=== PATIENT | female | born 1985 | race Caucasian/White ===

== ENCOUNTER → 2019-05-31 | Outpatient (CLI) | payer OTHER | END | disposition home or self-care (01) | LOC: CVU 08:18 | PROVIDERS: ATTEND Surgery | DX: I77.0 Arteriovenous fistula, acquired (principal); N18.6 End stage renal disease | CPT/HCPCS: 93990 ==

== ENCOUNTER 2020-08-17 10:21 | Day surgery (SDC) | payer OTHER ==
[~2020-08-17] VITALS: Ht 167.6 cm; Wt 96.3 kg
[2020-08-17 10:56] VITALS: BP 163/77
[2020-08-17] MEDS ORDERED: LACTATED RINGERS 1,000 ML IV SCH (11:00)
[2020-08-17] MEDS ORDERED: TYLENOL PO (11:37)
[2020-08-17] MEDS ORDERED: GAS X PO (11:37)
[2020-08-17] MEDS ORDERED: AMIT10TA PO (11:37)
[2020-08-17] MEDS ORDERED: MEDR10TA PO (11:37)
[2020-08-17] MEDS ORDERED: LAMO150T4 PO (11:37)
[2020-08-17] MEDS ORDERED: PEPTO-BISMOL PO (11:37)
[2020-08-17] MEDS ORDERED: METO10TA82 PO (11:37)
[2020-08-17] MEDS ORDERED: AMLO-211 PO (11:37)
[2020-08-17] MEDS ORDERED: FURO80TA77 PO (11:37)
[2020-08-17] MEDS ORDERED: CARV6.252 PO (11:37)
[2020-08-17] MEDS ORDERED: PHENERGAN PO (11:37)
[2020-08-17] MEDS ORDERED: SERT100T PO (11:37)
[2020-08-17] MEDS ORDERED: LEVO75TA5 PO (11:37)
[2020-08-17] MEDS ORDERED: LEVE750T37 PO (11:37)
[2020-08-17] MEDS ORDERED: INSULIN ASPART (11:37)
[2020-08-17] MEDS ORDERED: DIPH25CA61 PO (11:37)
[2020-08-17] MEDS ORDERED: LISI40TA PO (11:37)
[2020-08-17] MEDS ORDERED: ATOR10TA9 PO (11:37)
[2020-08-17] MEDS ORDERED: ZOFRAN ODT PO (11:37)
[2020-08-17] MEDS ORDERED: LIDOCAINE 1%, 10ML ONE (12:05)
[2020-08-17 12:07] LABS: BASOPHILS % (AUTO) 1 % (0-1); EOSINOPHILS % (AUTO) 2 % (1-7); LYMPHOCYTES % (AUTO) 21 % (22-44); MEAN CORPUSCULAR HEMOGLOBIN 31.4 pg (27.0-34.8); MEAN CORPUSCULAR HGB CONC 34.4 g/dL (32.4-35.8); MONOCYTES % (AUTO) 11 % (2-9); NEUTROPHILS % (AUTO) 65 % (42-75); PLATELET COUNT 417 x10^3/uL (130-400); RED BLOOD COUNT 3.31 x10^6/uL (3.82-5.3); RED CELL DISTRIBUTION WIDTH 12.6 % (9.6-15.2)
[2020-08-17 12:08] LABS: MD NO
[2020-08-17 12:11] LABS: ALANINE AMINOTRANSFERASE 25 U/L (12-78); ALBUMIN 4.2 g/dL (3.4-5.0); ANION GAP 9 mmol/L (5-15); CALCIUM 9.2 mg/dL (8.5-10.1); CHLORIDE 95 mmol/L (98-107)
[2020-08-17 12:14] LABS: ALKALINE PHOSPHATASE 110 U/L (45-117); BILIRUBIN,TOTAL 0.3 mg/dL (0.2-1.0); CREATININE 6.56 mg/dL (0.55-1.02); TOTAL PROTEIN 8.6 g/dL (6.4-8.2)
[2020-08-17] MEDS ORDERED: MIDAZOLAM 1 MG/ML, 5ML ONE (12:58)
[2020-08-17] MEDS ORDERED: FENTANYL PF 100 MCG/2ML ONE (12:58)
[2020-08-17] MEDS ORDERED: NALOXONE 1 MG/ML, 2ML ONE (12:58)
[2020-08-17] MEDS ORDERED: HEPARIN 1,000 UNITS/ML, 10ML ONE (12:58)
[2020-08-17] MEDS ORDERED: FLUMAZENIL 0.1 MG/1 ML, 5ML ONE (12:58)
[2020-08-17] MEDS ORDERED: PROTAMINE SULFATE 10 MG/ML, 25ML ONE (12:58)
[2020-08-17] MEDS ORDERED: DIPHENHYDRAMINE 50 MG/ML, 1ML ONE (13:47)
[2020-08-17] MEDS ORDERED: HYDROmorphone 2 MG/ML, 1ML ONE (14:02)
[2020-08-17] MEDS ORDERED: LORazepam 2 MG/ML, 1ML ONE (14:22)
[2020-08-17] MEDS ORDERED: hydrOXYzine 50 MG/ML IM PRN (14:30)
[2020-08-17] MEDS ORDERED: morphine SULFATE 10 MG/ML, 1ML ONE (15:16)
[2020-08-17] MEDS ORDERED: MORPHINE SULFATE 4 MG/ML, 1ML IVPush ONE (15:30)
== END 2020-08-17 15:47 | disposition home or self-care (01) ==
LOC: OUT 10:21
PROVIDERS: ATTEND Surgery
DX: T82.898A Other specified complication of vascular prosthetic devices, implants and grafts, initial encounter (principal); N18.6 End stage renal disease; E10.21 Type 1 diabetes mellitus with diabetic nephropathy; G40.909 Epilepsy, unspecified, not intractable, without status epilepticus; E03.9 Hypothyroidism, unspecified; F51.01 Primary insomnia; I12.0 Hypertensive chronic kidney disease with stage 5 chronic kidney disease or end stage renal disease; E10.22 Type 1 diabetes mellitus with diabetic chronic kidney disease; F41.8 Other specified anxiety disorders; Z90.49 Acquired absence of other specified parts of digestive tract; Z79.899 Other long term (current) drug therapy; Z88.8 Allergy status to other drugs, medicaments and biological substances; Z20.828 Contact with and (suspected) exposure to other viral communicable diseases; Y83.8 Other surgical procedures as the cause of abnormal reaction of the patient, or of later complication, without mention of misadventure at the time of the procedure; Z99.2 Dependence on renal dialysis; Z20.822 Contact with and (suspected) exposure to COVID-19
CPT/HCPCS: 36415; 36902; 80053; 85025; 85730; 87635; 99156; 99157; C1725; C1769; C1894; J1200; J2060; J2250; J2270; J3010; J3410; J1644; J2720; J2310

== ENCOUNTER 2020-11-17 07:47 | Observation (INO) | payer OTHER ==
[~2020-11-17] VITALS: Ht 167.6 cm; Wt 92.7 kg
[~2020-11-17 07:47] MED LIST: AMIT10TA PO; AMLO-211 PO; ATOR10TA9 PO; CALC667C PO; CARV6.252 PO; DIPH25CA61 PO; FURO80TA77 PO; GAS X PO; HYDR-826 PO; INSULIN ASPART; LAMO150T4 PO; LEVE750T37 PO; LEVO75TA5 PO; LISI40TA9 PO; LORA-446 PO; MEDR10TA PO; METO10TA82 PO; PEPTO-BISMOL PO; PHENERGAN PO; SERT100T PO; TYLENOL PO; VITAMIN D3-50 PO; ZOFRAN ODT PO; [UNRECOGNIZED DRUG - OTHER]
[2020-11-17 08:25] VITALS: BP 112/75
[2020-11-17] MEDS ORDERED: LACTATED RINGERS 1,000 ML IV SCH (08:30)
[2020-11-17] MEDS ORDERED: CHLORHEXIDINE 15 ML UDC ONE (08:35)
[2020-11-17] MEDS ORDERED: CHLORHEXIDINE 15 ML UDC PO ONE (09:00)
[2020-11-17] MEDS ORDERED: OXYcodone 5 MG/5 ML ORAL.SOL UDC PO PRN (10:00)
[2020-11-17] MEDS ORDERED: ACETAMINOPHEN 325 MG TABLET PO PRN (10:00)
[2020-11-17] MEDS ORDERED: LABETALOL 5MG/ML, 20ML IV PRN (10:00)
[2020-11-17] MEDS ORDERED: MEPERIDINE/PF 25MG/0.5ML IVPush PRN (10:00)
[2020-11-17] MEDS ORDERED: hydrALAzine 20 MG/ML, 1ML IV PRN (10:00)
[2020-11-17] MEDS ORDERED: ALBUTEROL SULFATE 2.5 MG/3 ML NPPB PRN (10:00)
[2020-11-17] MEDS ORDERED: HYDROmorphone 1 MG/ML, 1ML INJ IVPush PRN (10:00)
[2020-11-17] MEDS ORDERED: LORazepam 2 MG/ML, 1ML IVPush PRN (10:00)
[2020-11-17] MEDS ORDERED: PROMETHAZINE 25 MG/ML, 1ML IVPush PRN (10:00)
[2020-11-17] MEDS ORDERED: LIDOCAINE-MPF 1%, 2ML ONE (10:09)
[2020-11-17 10:12] LABS: BASOPHILS % (AUTO) 1 % (0-1); EOSINOPHILS % (AUTO) 3 % (1-7); LYMPHOCYTES % (AUTO) 22 % (22-44); MEAN CORPUSCULAR HEMOGLOBIN 29.8 pg (27.0-34.8); MEAN CORPUSCULAR HGB CONC 33.5 g/dL (32.4-35.8); MONOCYTES % (AUTO) 7 % (2-9); NEUTROPHILS % (AUTO) 67 % (42-75); PLATELET COUNT 383 x10^3/uL (130-400); RED CELL DISTRIBUTION WIDTH 12.8 % (9.6-15.2)
[2020-11-17 10:15] LABS: MD NO
[2020-11-17] MEDS ORDERED: DIPHENHYDRAMINE 50 MG/ML, 1ML ONE (10:22)
[2020-11-17] MEDS ORDERED: SUCCINYLCHOLINE 20 MG/ML, 10ML ONE (10:22)
[2020-11-17] MEDS ORDERED: ROCURONIUM 10 MG/ML,10ML ONE (10:22)
[2020-11-17 10:24] LABS: ALANINE AMINOTRANSFERASE 23 U/L (12-78); ALBUMIN 4.1 g/dL (3.4-5.0); ANION GAP 8 mmol/L (5-15); CALCIUM 9.3 mg/dL (8.5-10.1); CHLORIDE 93 mmol/L (98-107); CREATININE 7.63 mg/dL (0.55-1.02)
[2020-11-17 10:28] LABS: ALKALINE PHOSPHATASE 105 U/L (45-117); BILIRUBIN,TOTAL 0.4 mg/dL (0.2-1.0); TOTAL PROTEIN 8.2 g/dL (6.4-8.2)
[2020-11-17] MEDS ORDERED: LIDOCAINE-MPF 1%, 2ML INFIL ONE (10:30)
[2020-11-17] MEDS ORDERED: MIDAZOLAM 1 MG/ML, 2ML ONE (10:49)
[2020-11-17] MEDS ORDERED: FENTANYL PF 100 MCG/2ML ONE ×2 (10:49→12:12)
[2020-11-17] MEDS ORDERED: DEXAMETHASONE 4 MG/ML, 5ML ONE (11:26)
[2020-11-17] MEDS ORDERED: ONDANSETRON 2MG/ML, 2ML ONE ×2 (11:26)
[2020-11-17] MEDS ORDERED: PROPOFOL 10 MG/ML, 20ML ONE (11:26)
[2020-11-17] MEDS ORDERED: LIDOCAINE-MPF 2% ,5ML ONE (11:27)
[2020-11-17] MEDS: FENTANYL PF 100 MCG/2ML IV PRN ×2 (12:14→12:38)
[2020-11-17] MEDS ORDERED: ACETAMINOPHEN 650 MG/20.3 ML UDC ONE (12:19)
[2020-11-17] MEDS ORDERED: OXYcodone 5 MG/5 ML ORAL.SOL UDC ONE (12:19)
[2020-11-17] MEDS ORDERED: SODIUM CHLORIDE FLUSH 10ML SYR IVF SCH (21:00)
== END 2020-11-17 13:52 | disposition home or self-care (01) ==
LOC: OUT 07:47 → ORIP 11:59
PROVIDERS: ADMIT Surgery; ATTEND Surgery
DX: T82.858A Stenosis of other vascular prosthetic devices, implants and grafts, initial encounter (principal); Z20.822 Contact with and (suspected) exposure to COVID-19; I12.0 Hypertensive chronic kidney disease with stage 5 chronic kidney disease or end stage renal disease; E10.22 Type 1 diabetes mellitus with diabetic chronic kidney disease; N18.6 End stage renal disease; G40.909 Epilepsy, unspecified, not intractable, without status epilepticus; E03.9 Hypothyroidism, unspecified; E10.40 Type 1 diabetes mellitus with diabetic neuropathy, unspecified; E10.21 Type 1 diabetes mellitus with diabetic nephropathy; I25.10 Atherosclerotic heart disease of native coronary artery without angina pectoris; K21.9 Gastro-esophageal reflux disease without esophagitis; F41.8 Other specified anxiety disorders; J45.909 Unspecified asthma, uncomplicated; E66.9 Obesity, unspecified; R79.1 Abnormal coagulation profile; Z87.891 Personal history of nicotine dependence; Z99.2 Dependence on renal dialysis; Z79.899 Other long term (current) drug therapy
CPT/HCPCS: 36902; 71046; 80053; 82962; 84703; 85025; 93005; C1725; C1769; C1894; G0378; J0330; J1100; J1200; J2250; J2405; J2704; J3010; J3490; U0003

== ENCOUNTER 2021-04-27 12:31 | Day surgery (SDC) | payer OTHER ==
[~2021-04-27] VITALS: Ht 167.6 cm; Wt 89.4 kg
[2021-04-27 13:12] VITALS: BP 121/76
== END 2021-04-27 19:20 | disposition home or self-care (01) ==
LOC: OUT 12:31
PROVIDERS: ATTEND Surgery
DX: T82.858A Stenosis of other vascular prosthetic devices, implants and grafts, initial encounter (principal); I12.0 Hypertensive chronic kidney disease with stage 5 chronic kidney disease or end stage renal disease; N18.6 End stage renal disease; F41.9 Anxiety disorder, unspecified; F32.9 Major depressive disorder, single episode, unspecified; E03.9 Hypothyroidism, unspecified; G40.909 Epilepsy, unspecified, not intractable, without status epilepticus; F17.210 Nicotine dependence, cigarettes, uncomplicated; E66.9 Obesity, unspecified; Z68.31 Body mass index [BMI] 31.0-31.9, adult; Z20.822 Contact with and (suspected) exposure to COVID-19; Z79.82 Long term (current) use of aspirin; Z79.890 Hormone replacement therapy; Z79.899 Other long term (current) drug therapy; Z88.8 Allergy status to other drugs, medicaments and biological substances; Z94.0 Kidney transplant status; Z94.83 Pancreas transplant status; Y83.8 Other surgical procedures as the cause of abnormal reaction of the patient, or of later complication, without mention of misadventure at the time of the procedure